=== PATIENT | male | born 1960 | race Caucasian/White ===

== ENCOUNTER 2018-12-21 11:54 | Observation (INO) | payer BC ==
--- NOTE | 2018-12-21 12:02 | ED ---
HPI Chest Pain - HPI Summary HPI Summary: This pt is a 58 y/o male presenting to [facility] via EMS c/o chest pain today since around 11:45. 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 Today he drove from [place], [place] at around 0730 after picking up a brands editor. He notes he began to have mid sternal chest pain at around 11:45 with radiation to his neck. He also states he had tremors, turned as red "as an apple" and had left arm numbness. Denies cough, fever, diaphoresis, chills. Pt reports he had leg pain yesterday, today he states his legs are cold but denies pain. EMS administered 324 mg aspirin and nitroglycerin x2 on scene. Pt at onset rated his chest pain 7/10 in severity and after nitroglycerin pt rated his pain 4/10 in severity. He currently rates his chest pain 3/10. Per EMS, pt's initial blood pressure was 190/110 and now it is down to 150/90. Denies erythema of eyes , sore throat, SOB, abd pain, nausea, vomiting, dysuria, hematuria, myalgia, edema, rash, or dizziness. PMHx: cholesterolemia, cardiac stents x3. Pt is on Plavix and aspirin. He follows up at [facility] in Cardiology. Pt had his cardiac stents placed in [facility]. Pt smokes 5 cigarettes a day. He is allergic to IV dye, reaction of anaphylaxis. - History of Current Complaint Hx Obtained From: Patient, EMS Onset/Duration: Started Minutes Ago, Still Present Timing: Lasting Minutes Initial Severity: Severe Current Severity: Mild Pain Intensity: 3 Pain Scale Used: 0-10 Numeric Chest Pain Location: Mid Sternal Chest Pain Radiates: Yes Chest Pain Radiates To:: Neck Aggravating Factor(s): Nothing Alleviating Factor(s): NTG 123, EMS Tx Associated Signs and Symptoms: Positive: Chest Pain, Numbness - left arm. Negative: Shortness of Breath, Fever, Chills, Diaphoresis, Nausea, Cough, Abdominal Pain, Vomiting - Allergy/Home Medications Allergies/Adverse Reactions: Allergies Allergy/AdvReac Type Severity Reaction Status Date / Time Iodinated Contrast Media Allergy Anaphylatic Verified 12/21/18 12:27 Shock Home Medications: Home Medications Aspirin 81 mg CHEW TAB* [Aspirin Low Dose TAB*] 81 mg PO DAILY 12/21/18 [ History Confirmed 12/21/18] Atenolol TAB* [Tenormin TAB* 25 MG] 25 mg PO DAILY 12/21/18 [History Confirmed 12/21/18] Clopidogrel TAB* [Plavix TAB*] 75 mg PO DAILY 12/21/18 [History Confirmed ] Esomeprazole(NF) [NexIUM(NF)] 40 mg PO BID 12/21/18 [History Confirmed 12/21/18] Gabapentin CAP(*) [Neurontin 300 CAP(*)] 300 mg PO SEE INSTRUCTIONS 12/21/18 [ History Confirmed 12/21/18] Levothyroxine TAB* [Synthroid TAB*] 137 mcg PO 0800 12/21/18 [History Confirmed 12/21/18] Rosuvastatin Calcium [Crestor] 10.4 mg PO DAILY 12/21/18 [History Confirmed ] metFORMIN* [Glucophage 500 MG TAB *] 500 mg PO DAILY 12/21/18 [History Confirmed 12/21/18] PMH/Surg Hx/FS Hx/Imm Hx Endocrine/Hematology History: Reports: Hx Diabetes - type 2, Hx Thyroid Disease - hypothyroidism Cardiovascular History: Reports: Hx Coronary Artery Disease, Hx Hypercholesterolemia, Hx Hypertension - Surgical History Surgical History: Yes Surgery Procedure, Year, and Place: Cardiac stents x3 - Family History Known Family History: Negative: Respiratory Disease - Social History Alcohol Use: None Substance Use Type: Reports: None Smoking Status (MU): Light Every Day Tobacco Smoker Type: Cigarettes - 5 Review of Systems Constitutional: Other - POSITIVE: skin turned red Negative: Fever, Chills, Skin Diaphoresis Negative: Erythema Negative: Sore Throat Positive: Chest Pain Negative: Shortness Of Breath, Cough Negative: Abdominal Pain, Vomiting, Nausea Negative: dysuria, hematuria Negative: Myalgia, Edema Negative: Rash Neurological: Other - NEGATIVE: dizziness. POSITIVE: tremors Positive: Numbness - left arm All Other Systems Reviewed And Are Negative: Yes Physical Exam - Summary Physical Exam Summary: Constitutional: Well-developed, Well-nourished, Alert. (-) Distressed Skin: Warm, Dry HENT: Normocephalic; Atraumatic Eyes: Conjunctiva normal Neck: Musculoskeletal ROM normal neck. (-) JVD, (-) Stridor, (-) Tracheal deviation Cardio: Rhythm regular, rate normal, Heart sounds normal; Intact distal pulses; The pedal pulses are 2+ and symmetric. Radial pulses are 2+ and symmetric. (-) Murmur Pulmonary/Chest wall: Effort normal. (-) Respiratory distress, (-) Wheezes, (-) Rales Abd: Soft, (-) Tenderness, (-) Distension, (-) Guarding, (-) Rebound Musculoskeletal: (-) Edema Lymph: (-) Cervical adenopathy Neuro: Alert, Oriented x3 Psych: Mood and affect Normal Triage Information Reviewed: Yes Vital Signs On Initial Exam: Initial Vitals Temp Pulse Resp BP Pulse Ox 97.9 F 50 20 155/93 98 12/21/18 12:00 12/21/18 12:00 12/21/18 12:00 12/21/18 12:00 12/21/18 12:00 Vital Signs Reviewed: Yes Procedures - Sedation Patient Received Moderate/Deep Sedation with Procedure: No Diagnostics - Laboratory Result Diagrams: 12/21/18 12:23 12/21/18 12:22 Lab Statement: Any lab studies that have been ordered have been reviewed, and results considered in the medical decision making process. - Radiology chest XR Radiology Interpretation Completed By: Radiologist Summary of Radiographic Findings: IMPRESSION: No acute cardiopulmonary process by radiograph. Dr. Mccrary has reviewed this report. - EKG 13:19 Cardiac Rate: Bradycardia - at 46 bpm EKG Rhythm: Sinus Bradycardia Summary of EKG Findings: EKG at 13:19 shows sinus bradycardia at 46 bpm. No STEMI. No changes. 11:59 Cardiac Rate: Bradycardia - at 50 bpm EKG Rhythm: Sinus Bradycardia Summary of EKG Findings: EKG at 13:19 shows sinus bradycardia at 50 bpm. No STEMI. - Additional Comments Diagnostic Additional Comments: Lung scan - VQ NM, as read by radiologist IMPRESSION: Intermediate probability for pulmonary metabolism. Dr. Mccrary has reviewed this report. Chest Pain Course/Dx - Course Assessment/Plan: Pt is a 58 y/o male, with hx of cardiac stents x3, presenting to [facility] via EMS c/o chest pain today since around 11:45. 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 Today he drove from [place], [place] at around 0730 after picking up a brands editor. He notes he began to have mid sternal chest pain at around 11:45 with radiation to his neck. He also states he had tremors, turned as red "as an apple" and had left arm numbness. Denies cough, fever, diaphoresis, chills. Pt reports he had leg pain yesterday, today he states his legs are cold but denies pain. EMS administered 324 mg aspirin and nitroglycerin x2 on scene with relief of chest pain from 7/10 to 3/10 in severity. Lab results are unremarkable. Chest XR is negative. Lung scan - VQ NM shows: intermediate probability for pulmonary metabolism. In the ED course the pt was given acetaminophen, nitroglycerin, nitro paste. Discussed the case with Dr. Bose, hospitalist, who accepted the pt for admission. - Diagnoses Provider Diagnoses: Chest pain, unspecified - Provider Notifications Discussed Care Of Patient With: Jeanna Bose - hospitalist Time Discussed With Above Provider: 13:39 Instructed by Provider To: Admit As Inpatient Discharge ED - Sign-Out/Discharge Documenting (check all that apply): Patient Departure - Admit to [facility] - Discharge Plan Condition: Stable Disposition: ADMITTED TO [facility] Referrals: No Primary Care Phys,NOPCP [Primary Care Provider] - - Attestation Statements Document Initiated by Scribe: Yes Documenting Scribe: Sabina Edmondson Provider For Whom Scribe is Documenting (Include Credential): Cory Mccrary MD Scribe Attestation: Sabina Sesay, scribed for Cory Mccrary MD on 12/21/18 at 1355. Status of Scribe Document: Ready
[2018-12-21] MEDS ORDERED: Nitro 2% OINT* (Nitroglycerin) 1 INCH/PAK PAK TOPICAL ONE (12:10)
[2018-12-21] MEDS ORDERED: Nitroglycerin TAB 0.4 MG* 0.4 MG TAB SL ONE (12:10)
[2018-12-21 12:39] LABS: Hematocrit 45 % (42-52); Hemoglobin 15.2 g/dL (14.0-18.0); Mean Corpuscular Hemoglobin 31 pg (27-31); Mean Corpuscular Volume 91 fL (80-94); Red Blood Count 4.87 10^6 /uL (4.18-5.48); White Blood Count 10.2 10^3/uL (3.5-10.8)
[2018-12-21 12:40] LABS: ABS Basophils 0.1 10^3/ul (0-0.2); ABS Eosinophils 0.2 10^3/ul (0-0.6); ABS Lymphocytes 1.8 10^3/ul (1.0-4.8); ABS Monocytes 0.8 10^3/ul (0-0.8); ABS Neutrophils 7.3 10^3/ul (1.5-7.7); Eosinophil % 2.1 %; Lymphocyte % 17.8 %; Mean Corpuscular HGB Conc 34 g/dL (31-36); Mean Platelet Volume 8.6 fL (7.4-10.4); Platelet Count 255 10^3/uL (150-450); Red Cell Distribution Width 15 % (10-15)
[2018-12-21 13:07] LABS: Albumin/Globulin Ratio 1.4 (1-3); BUN/Creatinine Ratio 12.4 (8-20); Calcium 9.4 mg/dL (8.6-10.3); EGFR African American 87.5 (>60); EGFR Non-African American 72.3 (>60); Globulin 2.9 g/dL (2-4); Potassium 4.3 mmol/L (3.5-5.0); Total Bilirubin 0.4 mg/dL (0.2-1.0); Total Protein 6.9 g/dL (6.4-8.9)
[2018-12-21] MEDS ORDERED: Acetaminophen TAB* 325 MG PO ONE (13:37)
[2018-12-21] MEDS ORDERED: Dextrose 50% VIAL 50 ml IV PUSH PRN (14:41)
[2018-12-21] MEDS ORDERED: Morphine INJ* 2 MG/ML 1 ML SYRINGE (TWO MG - NEW SYRINGE VERSION) IV PRN (14:42)
[2018-12-21] MEDS ORDERED: Ondansetron INJ* 2 MG/ML VIAL IV PRN (14:42)
[2018-12-21] MEDS ORDERED: Acetaminophen TAB* 325 MG PO PRN (14:42)
[2018-12-21] MEDS ORDERED: Nitroglycerin TAB 0.4 MG* 0.4 MG TAB SL PRN (14:46)
[2018-12-21] MEDS ORDERED: Enoxaparin(*) 40 MG/0.4 ML SYR SUBCUT SCH (15:00)
[2018-12-21] MEDS: Insulin LISPRO* 1 UNITS UNIT SUBCUT SCH (16:50)
--- NOTE | 2018-12-21 17:01 | HP ---
AMENDED REPORT NOW INCLUDES DESIGNATED COSIGNER - ESIGNED BEFORE ADJUSTMENTS ADMISSION HISTORY AND PHYSICAL: DATE OF ADMISSION: 12/21/18 PRIMARY CARE PHYSICIAN: Dr. Jersey Bhatti. PROVIDER: Frannie Pereira NP ATTENDING PHYSICIAN: Dr. Bose.* (DICTATED BY FRANNIE PEREIRA NP) CHIEF COMPLAINT: Chest pain, left arm numbness. 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 At that point, he called EMS. EMS reported blood pressures of 190s/110s. The hospitalists were asked to evaluate the patient for admission. The patient states that he has not had any cardiac workup in 2 to 3 years, last heart attack was 8 years ago. 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 PAST MEDICAL HISTORY: Hypercholesterolemia, cardiac stents x3, diabetes type 2 , hypothyroidism, GERD, [place] x2 and diverticulosis. PAST SURGICAL HISTORY: Colon resection, back surgery x4 and mandible reconstruction. MEDICATIONS: 1. Metformin 500 mg p.o. daily. 2. Rosuvastatin calcium 10.4 mg p.o. daily. 3. Levothyroxine 137 mcg p.o. every 0800. 4. Esomeprazole 40 mg p.o. b.i.d. 5. Clopidogrel 75 mg p.o. daily. 6. Aspirin 81 mg p.o. daily. 7. Atenolol 25 mg p.o. daily. 8. Gabapentin 300 mg daily. ALLERGIES: Iodinated contrast medium - anaphylactic reaction. FAMILY HISTORY: Significant for coronary artery disease. SOCIAL HISTORY: He smokes about 5 cigarettes a day. He drinks about 2 drinks twice a week and has a THC pen which he has about 1 puff twice a week. 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 REVIEW OF SYSTEMS: An 11-point system review was performed, was positive for about 2/10 bilateral upper chest pain which was not reproducible and headache. Denied any shortness of breath or leg pain, nausea, vomiting or issues moving bowels or bladder. PHYSICAL EXAMINATION GENERAL: This is a well-developed obese gentleman, seen sitting up in bed, no acute distress. VITAL SIGNS: Temperature 97.9, 49 pulse, 15 respirations, 97% oxygen on 2 L, and 120/84 blood pressure. HEENT: Eyes: Conjunctivae are pink and moist. Pupils are equal, round, and reactive. EOMs intact. ENT: Oropharynx clear. Mucous membranes moist. LYMPHATICS: No cervical lymphadenopathy noted. NECK: Supple. RESPIRATORY: No accessory muscle use. Lung sounds clear throughout bilaterally on 2 L of oxygen. CARDIAC: S1, S2 present. Heart rate regular. No murmurs, gallops, or rubs appreciated. ABDOMEN: Soft, round per his normal. Nontender. Positive bowel sounds x4. MUSCULOSKELETAL: No clubbing or cyanosis noted. Full range of motion. NEUROLOGIC: Moves all extremities. Sensation intact to light touch. No focal deficits appreciated. PSYCHOLOGIC: He is alert and oriented x4. Thought content organized. No anxiety or depression noted. SKIN: No rashes or abnormalities noted. DIAGNOSTIC STUDIES/LAB DATA: D-dimer is less than 200, glucose 102, lactic acid 1.9. Troponin 0.00. Chest x-ray showed no acute cardiopulmonary process. EKG showed sinus rhythm with inverted T-waves in V1 through V4. No ST elevation. Lung V/Q scan showed an intermediate probability for pulmonary embolism. ASSESSMENT: My impression is that this is a 58-year-old male with a past medical history significant for previous myocardial infarctions with stenting and newly diagnosed diabetes, who is admitted on 12/21/18 for chest pain likely due to hypertension, though still attempting to rule out pulmonary embolism. PLAN: 1. Chest pain. Admit the patient to [facility], OBV, telemetry monitoring, heart healthy diet, no caffeine and hold atenolol for nuclear stress test tomorrow morning. Continue to trend trops q.3, may use nitroglycerin and morphine as needed for chest pain. Obtain old records from blood bank laboratory professional. It is unlikely that this is an aortic dissection because there was no pulse deficit. D-dimer was low. Unable to perform CTA due to anaphylaxis to contrast dye. Do not feel that this is an myocardial infarction due to lack of ST changes. This may perhaps to be due to elevated blood pressure as blood pressures were 190s/110s when coming in, though pain is likely cardiac in origin because it responds well to nitro. NPO after midnight for nuclear stress test in the a.m. 2. Possible right thigh DVT: No current redness or swelling, though had a period of very localized pain to right inner thigh two days ago and is sedentary. Ordered venous doppler. 3. Coronary artery disease. Continue clopidogrel, baby aspirin and rosuvastatin. 4. Diabetes. The patient was diagnosed only several weeks ago, is currently on metformin which I will continue as the patient is not able to have any contrast dye to begin with. Fingersticks a.c. with sliding scale insulin coverage. Continue gabapentin. 5. Hypertension. Hold atenolol until after nuclear stress test. 6. Gastroesophageal reflux disease. Continue esomeprazole. No signs or symptoms of indigestion. 7. Hypothyroidism. Continue levothyroxine. 8. DVT prophylaxis. SCDs. Continue Plavix and aspirin. 9. Code status is full code. CONDITION: Guarded DISPOSITION: Admit OBV to 4S. FRANNIE PEREIRA,EVIDENCE SPECIALIST [id number]/[facility] #: [id number] [facility]
[2018-12-21] MEDS: Pantoprazole TAB * 40 MG TAB PO SCH (20:04)
[2018-12-21] MEDS: oxyCODONE/Acetamin 5/325 MG* TAB PO PRN (20:04)
[2018-12-21] MEDS ORDERED: Gabapentin CAP(*) 300 MG PO SCH (21:00)
[2018-12-22] MEDS: oxyCODONE/Acetamin 5/325 MG* TAB PO PRN (03:09)
[2018-12-22] MEDS ORDERED: Levothyroxine TAB* 137 MCG TAB PO SCH (06:00)
[2018-12-22 06:31] LABS: ABS Basophils 0.1 10^3/ul (0-0.2); ABS Eosinophils 0.3 10^3/ul (0-0.6); ABS Lymphocytes 1.7 10^3/ul (1.0-4.8); ABS Monocytes 0.7 10^3/ul (0-0.8); ABS Neutrophils 5.6 10^3/ul (1.5-7.7); Eosinophil % 3.2 %; Hematocrit 44 % (42-52); Hemoglobin 14.8 g/dL (14.0-18.0); Lymphocyte % 20.7 %; Mean Corpuscular HGB Conc 34 g/dL (31-36); Mean Corpuscular Hemoglobin 31 pg (27-31); Mean Corpuscular Volume 91 fL (80-94); Mean Platelet Volume 8.8 fL (7.4-10.4); Nucleated Red Blood Cells % 0.2; Platelet Count 222 10^3/uL (150-450); Red Blood Count 4.79 10^6 /uL (4.18-5.48); Red Cell Distribution Width 14 % (10-15); White Blood Count 8.3 10^3/uL (3.5-10.8)
[2018-12-22 06:48] LABS: BUN/Creatinine Ratio 13.6 (8-20); Calcium 9.1 mg/dL (8.6-10.3); EGFR African American 89.4 (>60); EGFR Non-African American 73.9 (>60); Potassium 4.4 mmol/L (3.5-5.0)
[2018-12-22 08:14] VITALS: BP 136/77
[2018-12-22] MEDS: Insulin LISPRO* 1 UNITS UNIT SUBCUT SCH (08:29)
[2018-12-22] MEDS ORDERED: Gabapentin CAP(*) 300 MG PO SCH (09:00)
[2018-12-22] MEDS ORDERED: Atorvastatin* 20 MG TAB PO SCH (09:00)
[2018-12-22] MEDS ORDERED: Clopidogrel TAB* 75 MG PO SCH (09:00)
[2018-12-22] MEDS ORDERED: metFORMIN* 500 MG TAB PO SCH (09:00)
[2018-12-22] MEDS ORDERED: Aspirin 81 mg CHEW TAB* 81 MG TAB.CHEW PO SCH (09:00)
[2018-12-22] MEDS: Pantoprazole TAB * 40 MG TAB PO SCH (09:45)
--- NOTE | 2018-12-23 02:32 | DS ---
CC: Dr. Froylan Espinosa, Food Service Worker, [place] * DISCHARGE SUMMARY: DATE OF ADMISSION: 12/21/18 DATE OF DISCHARGE: 12/22/18 PRIMARY CARE PROVIDER: Out of area. ATTENDING PHYSICIAN: Mohini Lopez DO.* (DICTATED BY DANYELLE CARL NP) PRIMARY DIAGNOSIS: 1. Chest pain with a history of coronary artery disease. SECONDARY DIAGNOSES: 1. Diabetes mellitus type 2. 2. Hyperlipidemia. 3. Hypothyroidism. 4. Gastroesophageal reflux disease. STUDIES WHILE IN THE HOSPITAL: 1. Chest x-ray on 12/21/18 reads as no active cardiopulmonary process by radiograph. 2. EKG on 12/21/18 shows sinus bradycardia with a rate of 50, inverted T-waves in V2 and V3. No ST changes. 3. V/Q scan on 12/21/18 reads as intermediate probability for pulmonary embolism. 4. EKG on 12/21/18 shows sinus bradycardia with a rate of 46. Inverted T- waves in V2 and V3. No ST changes. 5. Chest CT on 12/21/18 reads as atherosclerosis. No acute VT pathology of the visualized portion of the chest. 6. Right lower extremity Doppler study on 12/21/18 reads as no evidence of deep vein thrombosis is identified. 7. EKG on 12/21/18 shows sinus bradycardia with a rate of 50, inverted T-waves in V2 and V3, no ST changes. 8. EKG on 12/22/18 shows sinus bradycardia with a rate of 45, inverted T-waves in V2 and V3, no ST changes. HISTORY OF PRESENT ILLNESS AND HOSPITAL COURSE: Mr. Atkins is a 58-year-old male with past medical history of CAD with 2 MIs and 3 stents, hyperlipidemia, diabetes, and hypothyroidism, who presented to the emergency room on 12/21/18 with complaints of chest pain and left arm numbness. Please see the history and physical by Casi Wilkinson NP for complete summary of the events leading up to this hospitalization. In short, the patient reported very localized right inner thigh pain which lasted approximately 30 minutes 2 days prior to his presentation. On the day of presentation, the patient got out of his car and suddenly developed left arm numbness, left hand shaking, flushing, and bilateral sharp upper chest pain which prompted him to call EMS. EMS reported blood pressure in the 190s/110s, though when the patient arrived in the emergency room, systolic pressures were noted to be in the 130s to 150s. Vitals were otherwise stable. Lab work was unremarkable including a D-dimer less than 200 and a negative troponin. EKG did show some inverted T-waves in V2 and V3, although after receiving prior records, this does appear to be the patient's baseline. In the emergency room, the ED physician ordered a V/Q scan because of concern for a pulmonary embolism and the patient's allergy to CONTRAST, though as noted D-dimer was less than 200 and the patient was bradycardic. Wells score is noted to be 0. The V/Q scan showed intermediate risk and a noncontrast chest CT was performed which showed no abnormalities. A Doppler of the right lower extremity was also done because of the 30 minutes of leg pain that the patient had experienced 2 days prior. Nevertheless, the patient was admitted by the hospitalist service as a chest pain rule out. The patient had a mostly uneventful night. He apparently had an episode of chest pain overnight, though the patient reports to me that this was a very short episode, and he believes this was due to his positioning in bed as when he rolled over, the chest pain resolved and he has not had any further chest pain since then. Telemetry had been unremarkable, and as noted above, EKGs have been unremarkable and consistency with his baseline. The patient did ultimately have 6 troponins as 0.00. The plan was for the patient to have a nuclear stress test today, though because the patient had a V/Q scan yesterday, Nuclear Medicine indicated that the patient would need to wait 48 hours to have a nuclear stress test. I did discuss this with the patient this morning and he does reside at [place], so at this point he has decided to leave against medical advice as he does not want to remain in the hospital for a stress test on , which would be greater than 48 hours after previous nuclear med scan. I did discuss at length with the patient his symptoms and prior history and he is very adamant that this episode of chest pain was not at all similar to previous episodes of chest pain that he had during his MIs. The patient does have the capacity to make his own medical decision. He does understand the risk of leaving against medical advice including recurrent chest pain, NSTEMI, STEMI, or possible . He is able to reiterate these risks to me and is very adamant that he will follow up appropriately. He did already speak with his dust brush assembler office. Most recent vitals are as follows: Temp 98.4, heart rate 51, respiratory rate 16, oxygen saturation 96% on room air, blood pressure 136/77. DISCHARGE MEDICATIONS: Continued medications: 1. Aspirin 81 mg p.o. daily. 2. Atenolol 25 mg p.o. daily. 3. Plavix 75 mg p.o. daily. 4. Esomeprazole 40 mg p.o. b.i.d. 5. Gabapentin 900 mg p.o. at bedtime. 6. Gabapentin 600 mg p.o. in the morning. 7. Levothyroxine 137 mcg p.o. daily. 8. Metformin 500 mg p.o. b.i.d. 9. Rosuvastatin 10 mg p.o. daily. DISCHARGE PLAN: Mr. Atkins is leaving against medical advice. His did come to [place] last night and so they plan on leaving from the hospital and driving back home to [place]. The patient did speak with his dust brush assembler office this morning and they indicated that I would be able to order an outpatient stress test for him. After 60 minutes of attempting to schedule an outpatient stress test for the patient, I was unable to as the patient does require prior authorization through his insurance company and this will need to be done by his dust brush assembler. This information was relayed to the patient and he states that he will call his dust brush assembler as soon as he gets home so that he can have a stress test as soon as possible. He can continue his usual medications and I have not made any changes. He should follow up with his PCP as needed and should see his dust brush assembler as soon as possible. He should return to the emergency room or nearest hospital for any worsening of symptoms, shortness of breath, lightheadedness, dizziness, chest discomfort, high fevers, chills, night sweats, loss of consciousness, or any other worrisome signs or symptoms. DISCHARGE CONDITION: Guarded. DISCHARGE DISPOSITION: Against medical advice. This is a summarized report of a complex medical history and hospital stay. For further details, please see the entire medical record. TIME SPENT: Approximately 90 minutes were spent on this discharge. DANYELLE CARL, WOMEN'S HEALTH CARE NURSE PRACTITIONER [id number]/[facility] #: [id number] [facility] HOSPITALMarlene
== END 2018-12-22 10:55 | disposition left against medical advice (07) ==
LOC: ED 11:54 → MEDTELE 14:42
PROVIDERS: ADMIT Internal Medicine; ATTEND Internal Medicine
DX: R07.9 Chest pain, unspecified (principal); I25.10 Atherosclerotic heart disease of native coronary artery without angina pectoris; I10 Essential (primary) hypertension; M79.604 Pain in right leg; E11.9 Type 2 diabetes mellitus without complications; E78.5 Hyperlipidemia, unspecified; K21.9 Gastro-esophageal reflux disease without esophagitis; E03.9 Hypothyroidism, unspecified; Z79.899 Other long term (current) drug therapy; Z79.82 Long term (current) use of aspirin; Z79.84 Long term (current) use of oral hypoglycemic drugs; Z95.5 Presence of coronary angioplasty implant and graft; F17.210 Nicotine dependence, cigarettes, uncomplicated; R00.1 Bradycardia, unspecified
CPT/HCPCS: 36415; 71045; 71250; 78582; 80048; 80053; 83605; 84484; 85025; 85379; 93005; 94660; 96374; 99285; A9270-GY; A9540; A9558; G0378; J2270